=== PATIENT | female | born 1980 | race Two or more races ===

== ENCOUNTER → 2016-11-05 | Outpatient (CLI) | payer OTHER ==
--- NOTE | 2016-11-05 08:43 | WOMENS IMAGING REPORT ---
EXAM DESCRIPTION: U/S ABDOMEN LIMITED COMPLETED DATE/TIME: 11/05/2016 8:13 am REASON FOR STUDY: B18.1 B18.1 CHRONIC VIRAL HEPATITIS B WITHOUT DELTA-AGENT R94.5 ABNORMAL RESULTS OF LIVER FUNCTION STUDIES COMPARISON: 05/16/2014 TECHNIQUE: Dynamic and static grayscale images acquired of the liver and recorded on PACS. Additiona l selected color Doppler and spectral images recorded. Selected velocities recorded. LIMITATIONS: None. FINDINGS: LIVER: Normal in echogenicity and size. No focal lesions are seen. LIVER VASCULATURE: Normal directional flow of the main portal vein and hepatic veins. The IVC is pat ent. GALLBLADDER: No stones. Normal wall thickness. No pericholecystic fluid. ULTRASOUND-DETECTED BYRD'S SIGN: Negative. INTRAHEPATIC DUCTS AND COMMON DUCT: No dilated intrahepatic ducts. CBD diameter normal. ASCITES: None. OTHER: No hydronephrosis the right kidney. No evidence AAA. IMPRESSION: NORMAL LIVER ULTRASOUND. TECHNICAL DOCUMENTATION: JOB ID: [id number] [employer]- All Rights Reserved
== END ==
LOC: WI 06:54
PROVIDERS: ATTEND Internal Medicine Gastroenterology
DX: B18.1 Chronic viral hepatitis B without delta-agent (principal)
CPT/HCPCS: 76705